=== PATIENT | male | born 1935 | race Caucasian/White ===

== ENCOUNTER 2021-05-26 11:58 | Outpatient (REF) | payer MEDICARE, SELFPAY ==
--- NOTE | ~2021-05-26 | CT_ITS ---
EXAMINATION: CT ABDOMEN AND PELVIS WITH CONTRAST CLINICAL INFORMATION: Weight loss. Malignant neoplasm of the urinary bladder. COMPARISON: None TECHNIQUE: Multidetector volumetric images were obtained from the superior aspect of the liver through the pubic symphysis following administration 85 mL of Omnipaque 350 intravenous contrast. Sagittal and coronal reformatted images were obtained on the technologist's workstation. Oral contrast: Yes This CT examination was performed using dose optimization techniques as appropriate, variously including the following: *Automated exposure control *Adjustment of mA and/or kV according to patient size (this includes techniques or standardized protocols for targeted exams where dose is matched to indication/reason for exam; i.e. extremities or head) *Use of iterative reconstruction technique DLP: 245 mGy-cm FINDINGS: LUNG BASES: The visualized lung bases are unremarkable. LIVER, GALLBLADDER, AND BILIARY TREE: The liver is normal in size, shape, and attenuation. No focal hepatic lesion or biliary ductal dilatation is present. The gallbladder is unremarkable with no evidence of radiopaque gallstones, gallbladder wall thickening, or obvious pericholecystic inflammatory changes. PANCREAS: Unremarkable. SPLEEN: Unremarkable. ADRENAL GLANDS: Unremarkable. KIDNEYS AND URETERS: There are bilateral renal cysts. There are right renal peripelvic cysts, largest in the lower pole measuring 1 x 2 cm. There are multiple left renal cortical cysts. Largest in the upper pole measuring 2 cm. No imaging follow-up needed. The kidneys are otherwise unremarkable. BLADDER: There is abnormal soft tissue at the base of the bladder, presumably related to the prostate gland. The bladder is otherwise unremarkable. GASTROINTESTINAL TRACT: There is diverticulosis of the colon. No evidence of diverticulitis is seen. The small and large bowel are otherwise unremarkable. The appendix is unremarkable. ABDOMINAL WALL: There is a small umbilical hernia containing fat and knuckle of small bowel. There is no evidence of obstruction. LYMPH NODES: No enlarged lymph nodes are seen. There is no ascites. VASCULAR: There is severe atherosclerotic disease. There appear to be significant stenoses of the bilateral external iliac and left common iliac arteries. PELVIC VISCERA: The prostate gland is enlarged and protrudes into the base of the bladder. The prostate gland measures 4 x 5.1 x 4.8 cm in AP transverse and longitudinal dimension. OSSEOUS STRUCTURES: There are degenerative changes of the spine and scoliosis. There is a 6 mm sclerotic lesion in the left L5 vertebral body. There are degenerative changes at the hip joints. Bone mineralization is slightly heterogeneous with multiple lucent areas probably related to osteopenia. CT/CT abdomen pelvis w con IMPRESSION: Enlarged prostate gland that protrudes into the base of the bladder. Separate bladder mass not appreciated. 6 mm sclerotic lesion in the L5 vertebral body. Diverticulosis of the colon. Severe atherosclerotic disease. Fleischner guidelines were followed.
[2021-05-26] MEDS: iohexoL 350 MG/ML 100 ML INFUS..BTL IV (14:45)
== END 2021-05-26 11:59 | disposition home or self-care (01) ==
LOC: HO.CT 11:58
PROVIDERS: Visit Provider Family Medicine
DX: C67.9 Malignant neoplasm of bladder, unspecified (principal); R63.4 Abnormal weight loss
CPT/HCPCS: 74177; Q9967